=== PATIENT | female | born 2000 | race Caucasian/White ===

== ENCOUNTER 2018-12-14 22:46 | Emergency (ER) | payer SELFPAY ==
[2018-12-14] MEDS: ACETAMINOPHEN 325 MG TAB PO (23:09)
== END 2018-12-15 00:54 | disposition home or self-care (01) ==
LOC: E/R 12-15 00:54
DX: O9A.212 Injury, poisoning and certain other consequences of external causes complicating pregnancy, second trimester (principal); S50.311A Abrasion of right elbow, initial encounter; S09.90XA Unspecified injury of head, initial encounter; S39.92XA Unspecified injury of lower back, initial encounter; Y04.2XXA Assault by strike against or bumped into by another person, initial encounter; Z3A.21 21 weeks gestation of pregnancy
CPT/HCPCS: 99282